=== PATIENT | male | born 1990 | race Caucasian/White ===

== ENCOUNTER 2022-07-06 16:33 | Emergency (ER) | payer OTHER ==
[~2022-07-06] VITALS: Ht 157.5 cm; Wt 59.0 kg
[2022-07-06 16:43] VITALS: BP 122/70
[2022-07-06] MEDS ORDERED: CYCL-448 PO (17:15)
[2022-07-06] MEDS ORDERED: IBUPROFEN 600 MG TABLET PO ONE (17:15)
[2022-07-06] MEDS ORDERED: IBUP-1492 PO (17:15)
[2022-07-06] MEDS ORDERED: CYCLOBENZAPRINE HCL 10 MG TABLET PO ONE (17:15)
[2022-07-06] MEDS ORDERED: LIDO1ADH48 TP (17:25)
== END 2022-07-06 17:29 | disposition home or self-care (01) ==
LOC: EMS 16:33
DX: S16.1XXA Strain of muscle, fascia and tendon at neck level, initial encounter (principal); V89.2XXA Person injured in unspecified motor-vehicle accident, traffic, initial encounter; Y93.89 Activity, other specified; Y92.89 Other specified places as the place of occurrence of the external cause; Y99.8 Other external cause status
CPT/HCPCS: 99283